=== PATIENT | male | born 1960 | race Caucasian/White ===

== ENCOUNTER 2016-12-02 05:49 | Outpatient (CLI) | payer BC ==
[~2016-12-02] VITALS: Ht 177.8 cm; Wt 61.2 kg
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
[2016-12-02] MEDS ORDERED: LEVO125T6 PO (14:10)
== END 2016-12-02 14:16 ==
LOC: PREOP 05:49
PROVIDERS: ATTEND Surgery
DX: Z01.818 Encounter for other preprocedural examination (principal); K40.90 Unilateral inguinal hernia, without obstruction or gangrene, not specified as recurrent

== ENCOUNTER 2016-12-08 09:07 | Day surgery (SDC) | payer BC ==
[~2016-12-08] VITALS: Ht 177.8 cm; Wt 61.2 kg
[~2016-12-08 09:07] MED LIST: LEVO125T6 PO
[2016-12-08 09:12] VITALS: BP 111/71
[2016-12-08] MEDS ORDERED: BUP/EPI 0.25% 1:200,000 (MARCAINE) 30 ML VIAL ONE (09:44)
[2016-12-08] MEDS: LACTATED RINGERS 1,000 ML IV PRN ×2 (09:45→10:40)
[2016-12-08] MEDS ORDERED: SEVOFLURANE (ULTANE) 15 ML INHAL SOLN ONE ×5 (09:52→12:13)
[2016-12-08] MEDS ORDERED: LIDOCAINE PF 2% 10 ML (XYLOCAINE) AMP ONE (09:52)
[2016-12-08] MEDS ORDERED: LACTATED RINGERS 1,000 ML IV ONE ×2 (09:52→11:00)
[2016-12-08] MEDS ORDERED: ROCURONIUM 50 MG/5 ML (ZEMURON) VIAL IV ONE (09:52)
[2016-12-08] MEDS ORDERED: proPOfol 200 MG/20 ML (DIPRIVAN) VIAL IV ONE (09:52)
[2016-12-08] MEDS ORDERED: DEXAMETHASONE PF 10 MG/ML (DECADRON) VIAL ONE (09:52)
[2016-12-08] MEDS ORDERED: ONDANSETRON 4 MG/2 ML (SDV) Z0FRAN ONE (09:52)
[2016-12-08] MEDS ORDERED: fentaNYL INJECTION 250 MCG/5 ML AMP ONE (09:53)
[2016-12-08] MEDS ORDERED: ceFAZolin 1,000 MG (ANCEF) VIAL ONE (09:53)
[2016-12-08] MEDS ORDERED: NS (IVPB) 50 ML ONE (09:54)
[2016-12-08] MEDS ORDERED: MIDAZOLAM 2 MG/2 ML (VERSED) VIAL ONE (09:55)
[2016-12-08] MEDS ORDERED: ceFAZolin 1 GM/NS 50 ML IVPB IV ONE ×2 (10:15)
[2016-12-08] MEDS ORDERED: CATHETER FLUSH 10 ML SYR IV PRN (10:15)
--- NOTE | 2016-12-08 12:12 | Progress Note-Pre Operative ---
Pre-Operative Progress Note H&P Reviewed The H&P was reviewed, patient examined and no changes noted. Date H&P Reviewed: Dec 08, 2016 Time H&P Reviewed: 09:04 Pre-Operative Diagnosis: right inguinal hernia AMARJIT NUNEZ MD Dec 08, 2016 12:12 pm
--- NOTE | 2016-12-08 12:13 | Progress Note-Post Operative ---
Post-Operative Progess Note Pre-Operative Diagnosis right inguinal hernia Post-Operative Diagnosis same Post-Op Procedure Note Date of Procedure: Dec 08, 2016 Name of Procedure: robotic assisted repair with mesh Anesthesia Type Gen. Estimated blood loss (mL): minimal AMARJIT NUNEZ MD Dec 08, 2016 12:13 pm
[2016-12-08] MEDS ORDERED: HYDR-3812 PO ×2 (12:14→14:25)
--- NOTE | 2016-12-08 12:15 | Discharge Inst-Simple/Standard ---
Discharge Inst-Standard Discharge Medications New, Converted or Re-Newed RX: RX on Chart Patient Instructions/Follow Up Plan of Care/Instructions/FU: dressings off in 48 hours. Follow-up in 4 weeks Activity as Tolerated: No Goal: no lifting over 10 pounds Discharge Diet: No Restrictions AMARJIT NUNEZ MD Dec 08, 2016 12:15 pm
[2016-12-08] MEDS ORDERED: fentaNYL INJECTION 100 MCG/2 ML AMP IV PRN (12:30)
[2016-12-08] MEDS ORDERED: PROMETHAZINE INJ 25 MG/ML (PHENERGAN) AMP IV PRN (12:30)
[2016-12-08] MEDS ORDERED: morphine INJ 10 MG/ML 1ML (SYR OR VIAL) IV PRN (12:30)
[2016-12-08] MEDS ORDERED: MEPERIDINE (DEMEROL) INJ 50 MG/ML IV PRN (12:30)
[2016-12-08] MEDS ORDERED: ONDANSETRON 4 MG/2 ML (SDV) Z0FRAN IV PRN (12:30)
[2016-12-08 13:15] VITALS: BP 138/88
[2016-12-08 13:45] VITALS: BP 136/85
[2016-12-08] MEDS ORDERED: HYDROcodone/APAP 5 MG/325 MG (LORTAB) TAB PO PRN (13:45)
--- NOTE | 2016-12-08 13:50 | OPERATIVE REPORT ---
PROCEDURE PHYSICIAN: AMARJIT NUNEZ DATE OF PROCEDURE: 12/08/2016 PREOPERATIVE DIAGNOSIS: Right inguinal hernia. POSTOPERATIVE DIAGNOSIS: Right inguinal hernia. OPERATION: Robotic assisted repair of right inguinal hernia with mesh. SURGEON: Bryan. ANESTHESIA: General anesthesia. BLOOD LOSS: Minimal. FLUIDS: 1900 mL crystalloids. TYPE OF WOUND: Type I (clean wound). INDICATION FOR THE PROCEDURE: This gentleman presented with a symptomatic right inguinal hernia. He was offered minimally invasive repair using robotic assistance and mesh reinforcement. Informed consent was obtained after reviewing the operative details and complications of hematoma, wound infection, infection of the mesh and the low incidence of recurrence. DESCRIPTION OF PROCEDURE: He was placed supine on the operative table and general anesthesia induced using an endotracheal tube. A gram of Ancef was administered intravenously as prophylaxis against wound infection. Sequential compression devices were placed around his legs, to minimize the risk of venous thrombus. A Ramos catheter was placed to decompress the bladder during surgery. It was removed at the end of the operation. Abdomen was prepared and draped in the usual sterile manner. A supraumbilical incision was made and pneumoperitoneum established using a Veress needle. Intra-abdominal pressure was maintained at 15 mmHg, using carbon dioxide insufflation. A 12 mm trocar was placed and anatomy visualized using the 3 dimensional, high definition laparoscope, associated with da [employer] system. An indirect right inguinal hernia was confirmed. There was no contralateral hernia. Under direct view, I placed an 8 mm cannula over each side of the abdomen and the patient was then turned steep Trendelenburg position, to displace loops of bowel out of the pelvis. The robotic system was then docked in place. Peritoneum was incised laterally, extending across the median umbilical area, entering the preperitoneal space. It was dissected, displaying Estrada's ligament. An indirect sac with an associated lipoma of cord was encountered. It was reduced out of the inguinal canal. The deep inguinal ring was rather lax and therefore gently approximated using a 2-0 V-Loc suture without any tension. A polypropylene mesh measuring 10 x 14 cm was used for reinforcement. It was secured to Estrada's ligament and the lateral abdominal musculature using 2-0 Vicryl sutures, with robotic assistance. Peritoneum was then reapproximated using a 2-0 V-Loc suture with robotic assistance. During this maneuver, intra-abdominal pressure was reduced to 10 mm to avoid tension on the suture line. Hemostasis was satisfactory and the operation concluded. The fascia over each of the incision was closed using number 1 Vicryl. The skin was closed using 4-0 Vicryl, in a subcuticular fashion. 0.25% Marcaine with epinephrine was infiltrated along the incisions, both preemptively and at the conclusion of the operation. He tolerated the procedure well, was extubated in the operating room and taken to the recovery room in a stable condition. Job ID: [id number] Dictated Date: 12/08/2016 12:12:08 Manager Customer Date: 12/08/2016 13:42:35 / monie LANGFORD
[2016-12-08 14:45] VITALS: BP 133/83
[2016-12-08 15:10] VITALS: BP 133/83
--- OUTSIDE RECORDS SUMMARY | 2016-12-12 04:44 | XMS REPORT | Continuity of Care Document ---
Demographics Preferred Language Unknown Marital Status Unknown Church Affiliation Unknown Race Unknown Ethnic Group Unknown Author Author [facility] Address Unknown Phone Unavailable Allergies Active Description Code Type Severity Reaction Onset Reported/Identified Relationship to Patient Clinical Status Yes levonorgestrel-eth estra [id number] Drug Allergy Mild N/A 03/03/2009 Yes levonorgestrel-ethinyl estradiol [id number] Drug Allergy Mild N/A 03/03/2009 Yes No Known Drug Allergies [id number] Drug Allergy Unknown N/ A 12/02/2016 Medications Problems Date Dx Coded Attending Type [...] YANA STEINER DO Ot 719.45 JOINT PAIN-PELVIS 12/02/2016 ENRIQUE AREVALO, AMARJIT Dupree Ot K40.90 UNIL INGUINAL HERNIA, W/O OBST OR GANGR , 12/02/2016 AMARJIT NUNEZ MD Ot Z01.818 ENCOUNTER FOR OTHER PREPROCEDURAL EXAMIN 12/02/2016 Ot 787.91 DIARRHEA 12/02/2016 AMARJIT NUNEZ MD Ot K40.90 UNIL INGUINAL HERNIA, W/O OBST OR GANGR , 12/02/2016 AMARJIT NUNEZ MD Ot Z01.818 ENCOUNTER FOR OTHER PREPROCEDURAL EXAMIN 12/02/2016 ENRIQUE AREVALO, AMARJIT Dupree Ot K40.90 UNIL INGUINAL HERNIA, W/O OBST OR GANGR , 12/02/2016 ENRIQUE AREVALO, AMARJIT Dupree Ot Z01.818 ENCOUNTER FOR OTHER PREPROCEDURAL EXAMIN 12/03/2016 ENRIQUE AREVALO, AMARJIT Dupree Ot K40.90 UNIL INGUINAL HERNIA, W/O OBST OR GANGR , 12/03/2016 ENRIQUE AREVALO, AMARJIT Dupree Ot Z01.818 ENCOUNTER FOR OTHER PREPROCEDURAL EXAMIN Procedures Results Test Result Range Methicillin resistant Staphylococcus aureus (MRSA) screening culture - 09:40 Methicillin resistant Staphylococcus aureus (MRSA) screening culture NEG NRG Encounters ACCT No. Visit Date/Time Discharge Status Pt. Type Provider Facility Loc./Unit Complaint [id number] 10/11/2012 10:14:00 10/11/2012 23: 59:59 CLS Outpatient
== END 2016-12-08 15:10 | disposition home or self-care (01) ==
LOC: DELPENDDIS → SDC 09:07
PROVIDERS: ATTEND Surgery
DX: K40.90 Unilateral inguinal hernia, without obstruction or gangrene, not specified as recurrent (principal)
CPT/HCPCS: 87081

== ENCOUNTER 2018-02-14 05:39 | Outpatient (CLI) | payer BC ==
[~2018-02-14] VITALS: Ht 177.8 cm; Wt 61.2 kg
[~2018-02-14 05:39] MED LIST changes: +ACHD5005 PO
[2018-02-14] MEDS ORDERED: LEVO137T2 PO (13:48)
[2018-02-14] MEDS ORDERED: MELO15TA39 PO (13:48)
== END 2018-02-14 14:09 ==
LOC: PREOP 05:39
PROVIDERS: ATTEND Surgery
DX: Z01.818 Encounter for other preprocedural examination (principal); K92.1 Melena; Z85.038 Personal history of other malignant neoplasm of large intestine

== ENCOUNTER 2018-02-20 06:56 | Day surgery (SDC) | payer BC ==
[~2018-02-20] VITALS: Ht 177.8 cm; Wt 61.2 kg
[~2018-02-20 06:56] MED LIST changes: +LEVO137T2 PO; +MELO15TA39 PO
[2018-02-20] MEDS ORDERED: NS IV 500 ML 500 ML IV PRN (07:09)
[2018-02-20] MEDS ORDERED: NS IV 500 ML 500 ML ONE (07:20)
[2018-02-20 07:40] VITALS: BP 105/65
[2018-02-20] MEDS ORDERED: MIDAZOLAM 2 MG/2 ML (VERSED) VIAL ONE ×3 (08:09→08:17)
[2018-02-20] MEDS ORDERED: fentaNYL INJECTION 100 MCG/2 ML AMP ONE (08:09)
[2018-02-20] MEDS: fentaNYL INJECTION 100 MCG/2 ML AMP IVP PRN ×2 (08:12→08:19)
[2018-02-20] MEDS: MIDAZOLAM 2 MG/2 ML (VERSED) VIAL IVP PRN ×3 (08:13→08:21)
--- NOTE | 2018-02-20 08:13 | History & Physicial ---
History of Present Illness History of Present Illness Reason for visit/HPI to undergo screening colonoscopy. Positive family history of colon cancer in his brother and paternal grandmother Date of Admission 02/20/18 Date Seen by Provider: Feb 20, 2018 Time Seen by Provider: 08:10 I consulted on this patient on 02/20/18 08:10 Attending Physician Amarjit Nunez MD Admitting Physician José Miguel Coelho DO Consult Allergies and Home Medications Allergies Coded Allergies: Sulfa (Sulfonamide Antibiotics) (Verified Allergy, Unknown, RASH, 02/14/18) Home Medications Levothyroxine Sodium 137 Mcg Tablet, 137 MCG PO DAILY, (Reported) Meloxicam 15 Mg Tablet, 15 MG PO DAILY, (Reported) Patient Home Medication List Home Medication List Reviewed: Yes Past Kzzvcxu-Cvstyf-Dsvboy Hx Patient Social History Marrital Status: Employed/Student: employed Alcohol Use: Denies Use Recreational Drug Use: No Smoking Status: Never a Smoker Recent Foreign Travel: No Contact w/other who traveled: No Recent Hopitalizations: No Seasonal Allergies Seasonal Allergies: Yes Surgeries Yes Respiratory No Cardiovascular No Reproductive System Hx Reproductive Disorders: No Sexually Transmitted Disease: No Genitourinary Yes Benign Prostatic Hyperpl Gastrointestinal No Musculoskeletal Yes Arthritis, Gout Endocrine History of Endocrine Disorders: Yes Endocrine Disorders: Hypothyroidsim HEENT Loss of Vision: Bilateral Hearing Impairment: Denies Cancer Yes Prostate Type of Treatment: Radiation Blood Transfusions Adverse Reaction to a Blood Tr: No (N/A) Constitutional: no symptoms reported EENTM: no symptoms reported Respiratory: no symptoms reported Cardiovascular: no symptoms reported Gastrointestinal: no symptoms reported Genitourinary: no symptoms reported Musculoskeletal: joint pain Skin: no symptoms reported Psychiatric/Neurological: No Symptoms Reported Physical Exam Vital Signs Vital Signs - First Documented 02/20/18 07:40 Temp 96.7 Pulse 51 Resp 18 B/P (MAP) 105/65 (78) Pulse Ox 100 O2 Delivery Room Air Capillary Refill : General Appearance: No Apparent Distress Neck: Normal Inspection Respiratory: Lungs Clear Cardiovascular: Regular Rate, Rhythm Gastrointestinal: No Pulsatile Mass, Soft Rectal: Deferred Extremity: Normal Inspection Neurologic/Psychiatric: Alert, Oriented x3 Skin: Warm/Dry Assessment/Plan Assessment and Plan gentleman with a family history of colon cancer. Previously negative colonoscopy. For screening colonoscopy. Details of the procedure, iatrogenic perforation, post polypectomy bleeding etc. have been reviewed thoroughly and is in agreement to proceed Admission Diagnosis Admission Status: Other (Outpt Proc) AMARJIT NUNEZ MD Feb 20, 2018 08:13
--- NOTE | 2018-02-20 08:13 | Conscious Sedation/ASA ---
Conscious Sedation Pre-Proced Time Reviewed: 08:13 ASA Class: 2 Airway Mallampati Classification: ([place] appropriate class) I. II. III, IV Lungs Heart ASA score ASA 1: a normal healthy patient ASA 2: a patient with a mild systemic disease (mid diabetes, controlled hypertension, obesity ASA 3: a patient with a severe systemic disease that limits activity (angina , COPD, prior Myocardial infarction) ASA 4: a patient with an incapacitating disease that is a constant threat to life (CHF, renal failure) ASA 5: a moribund patient not expected to survive 24 hrs. (ruptured aneurysm) ASA 6: a declared brain patient whose organs are being harvested. For emergent operations, add the letter E after the classification Grade 1 Sedation Plan: Discussed options with patient/fam Note The patient is an appropriate candidate to undergo the planned procedure, sedation, and anesthesia. The patient immediately re-assessed prior to indication. AMARJIT NUNEZ MD Feb 20, 2018 08:13
--- NOTE | 2018-02-20 08:33 | Endo Procedure Record ---
Endo Procedure Report Date of Procedure Last Colonoscopy: Yes Feb 20, 2018 Surgeon (s) AMARJIT NUNEZ MD Post Procedure/Op Diagnosis normal colonoscopy Mild degree of internal hemorrhoids Procedure Performed colonoscopy to cecum Description of Procedure Anesthesia Type: Conscious Sedation Specimen(s) collected/removed None Description of the Procedure Indication for the procedure: This gentleman, with a family history of colon cancer, came in for screening colonoscopy. Informed consent was obtained after reviewing the procedure in detail. Description of the procedure: He was placed in left lateral to cubitus position and his vital signs were monitored. Conscious sedation was achieved using Versed and fentanyl. Digital rectal examination was unremarkable. The colonoscope was then introduced in the rectum and advanced all the way up to the cecum. It was then withdrawn slowly and the mucosa examined in a systematic fashion. Findings: Internal hemorrhoids, possible source of rectal bleeding. No polyps He tolerated the procedure well and was taken to the nursing area in a stable condition. Impression: Screening colonoscopy. Positive family history. Recommend repeating in 5 years. Copy Copies To 1: YANA STEINER XAVIER M MD Feb 20, 2018 08:33
--- NOTE | 2018-02-20 08:34 | Discharge Inst-Simple/Standard ---
Discharge Inst-Standard Discharge Medications New, Converted or Re-Newed RX: Other Patient Instructions/Follow Up Plan of Care/Instructions/FU: repeat colonoscopy in 5 years Activity as Tolerated: Yes Discharge Diet: No Restrictions AMARJIT NUNEZ MD Feb 20, 2018 08:34
[2018-02-20 08:50] VITALS: BP 107/53
[2018-02-20 09:21] VITALS: BP 111/80
[2018-02-20 09:40] VITALS: BP 111/80
== END 2018-02-20 09:40 | disposition home or self-care (01) ==
LOC: ENDO 06:56
PROVIDERS: ATTEND Surgery
DX: Z12.11 Encounter for screening for malignant neoplasm of colon (principal); Z80.0 Family history of malignant neoplasm of digestive organs; K64.8 Other hemorrhoids; N40.0 Benign prostatic hyperplasia without lower urinary tract symptoms; E03.9 Hypothyroidism, unspecified; Z92.3 Personal history of irradiation; Z85.46 Personal history of malignant neoplasm of prostate

== ENCOUNTER 2022-12-30 08:57 | Emergency (ER) | payer BC ==
[~2022-12-30] VITALS: Ht 178 cm; Wt 72.5 kg
[2022-12-30] MEDS ORDERED: ASPIRIN 81 MG CHEW (CHILDREN'S ASA) PO ONE (09:15)
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
[2022-12-30 09:24] LABS: BASOPHILS # (AUTO) 0.1 10^3/uL (0.0-0.1); BASOPHILS % (AUTO) 1 % (0-10); EOSINOPHILS # (AUTO) 0.6 10^3/uL (0.0-0.3); EOSINOPHILS % (AUTO) 8 % (0-10); HEMATOCRIT 43 % (40-54); HEMOGLOBIN 14.6 g/dL (13.3-17.7); LYMPHOCYTES # (AUTO) 1.5 10^3/uL (1.0-4.0); LYMPHOCYTES % (AUTO) 21 % (12-44); MEAN CORPUSCULAR HEMOGLOBIN 31 pg (25-34); MEAN CORPUSCULAR HGB CONC 34 g/dL (32-36); MEAN CORPUSCULAR VOLUME 90 fL (80-99); MEAN PLATELET VOLUME 8.7 fL (9.0-12.2); MONOCYTES # (AUTO) 0.9 10^3/uL (0.0-1.0); MONOCYTES % (AUTO) 13 % (0-12); NEUTROPHILS # (AUTO) 4.1 10^3/uL (1.8-7.8); NEUTROPHILS % (AUTO) 57 % (42-75); PLATELET COUNT 349 10^3/uL (130-400); WHITE BLOOD COUNT 7.3 10^3/uL (4.3-11.0)
[2022-12-30 09:28] LABS: ALBUMIN 4.3 GM/DL (3.2-4.5); POTASSIUM 4.1 MMOL/L (3.6-5.0)
[2022-12-30 09:29] LABS: CALCIUM 9.5 MG/DL (8.5-10.1)
[2022-12-30 09:30] LABS: PROTHROMBIN TIME PATIENT 13.7 SEC (12.2-14.7)
[2022-12-30 09:31] LABS: TOTAL PROTEIN 7.7 GM/DL (6.4-8.2)
[2022-12-30 09:32] LABS: BILIRUBIN,TOTAL 0.5 MG/DL (0.1-1.0)
[2022-12-30 09:34] LABS: CREATININE SERUM 0.9 MG/DL (0.60-1.30)
[2022-12-30 09:37] LABS: MAGNESIUM 2.2 MG/DL (1.6-2.4)
--- NOTE | 2022-12-30 09:41 | Diagnostic Imaging Report ---
INDICATION: Chest heaviness and fatigue. FINDINGS: The frontal chest x-ray is normal. The lungs are clear. No failure, effusion, or pneumothorax. IMPRESSION: No acute appearing abnormality. Dictated by: Dictated on workstation # [id number]
[2022-12-30 12:32] VITALS: BP 131/80
== END 2022-12-30 12:35 | disposition home or self-care (01) ==
LOC: EDUNIT# 08:57 → ER 09:00
DX: R07.89 Other chest pain (principal); R53.83 Other fatigue; R00.1 Bradycardia, unspecified; Z87.891 Personal history of nicotine dependence; Z86.16 Personal history of COVID-19; Z20.822 Contact with and (suspected) exposure to COVID-19
CPT/HCPCS: 36415; 71045; 80053; 83735; 84484; 85025; 85610; 85730; 87636; 93005; 93041